=== PATIENT | female | born 1965 | race Caucasian/White ===

== ENCOUNTER 2017-03-17 17:46 | Emergency (ER) | payer SELFPAY | END 2017-03-17 18:15 | disposition left against medical advice (07) | LOC: ED 17:46 | DX: M54.9 Dorsalgia, unspecified (principal); Z53.21 Procedure and treatment not carried out due to patient leaving prior to being seen by health care provider ==

== ENCOUNTER 2017-03-18 06:43 | Emergency (ER) | payer MEDICAID ==
[2017-03-18 07:33] LABS: Basophils % (Auto) 0.9 % (0.0-1.8); Eosinophils % (Auto) 2.3 % (0.0-4.3); Hematocrit 36.4 % (30.3-42.9); Mean Corpuscular HGB Conc 33 % (30-34); Mean Corpuscular Hemoglobin 30 pg (28-32); Mean Corpuscular Volume 90 fl (79-97); Platelet Count 206 K/mm3 (140-440); Red Blood Count 4.04 M/mm3 (3.65-5.03); Red Cell Distribution Width 13.4 % (13.2-15.2); Reticulocyte % 0.37 % (0.78-2.58)
[2017-03-18] MEDS ORDERED: D5NS 0.2% 1,000 ML IV SCH (08:00)
[2017-03-18] MEDS ORDERED: TORADOL IV ONE (10:04)
[2017-03-18] MEDS ORDERED: BENADRYL IV ONE (10:04)
[2017-03-18] MEDS ORDERED: DILAUDID IV ONE (10:04)
[2017-03-18] MEDS ORDERED: ZOFRAN IV ONE (10:04)
--- NOTE | 2017-03-18 11:30 | Emergency Department Report ---
ED General Adult HPI - General Chief complaint: Sickle Cell Crisis Stated complaint: BILATERAL LEG/BACK PAIN Time Seen by Provider: 03/18/17 09:52 Source: patient Mode of arrival: Ambulatory Limitations: No Limitations - History of Present Illness Initial comments: 51-year-old female the past medical history of sickle cell as as presents to the hospital complaining of lower back in the bilateral thigh pain for 4 days. Pain is aching, intermittent, rated moderate to severe intensity. No aggravating or alleviating factors. Back pain worse with palpation and movement. No alleviating factors. Pain is similar to sickle cell crisis in the past. No reports of urinary incontinence, frequency, fever, weakness, numbness, or abdominal pain. Patient moved here from [place] 2 months ago and does not have a local manager cargo. She does not have a port. She denies splenectomy or cholecystectomy. Severity scale (0 -10): 10 - Related Data Previous Rx's Medication Instructions Recorded Last Taken Type Ibuprofen [Motrin] 600 mg PO Q8H PRN #30 tablet 03/18/17 Unknown Rx Nitrofurantoin [place]/M-Cryst 100 mg PO Q12HR #14 capsule 03/18/17 Unknown Rx [Macrobid CAP] Ondansetron [Zofran Odt] 4 mg PO Q8HR PRN #20 tab.rapdis 03/18/17 Unknown Rx traMADol [Ultram 50 MG tab] 50 mg PO Q6HR PRN #20 tablet 03/18/17 Unknown Rx Allergies Allergy/AdvReac Type Severity Reaction Status Date / Time No Known Allergies Allergy Verified 03/18/17 07:35 ED Review of Systems ROS: Stated complaint: BILATERAL LEG/BACK PAIN Other details as noted in HPI Comment: All other systems reviewed and negative Other: Constitutional: No fevers chills Eyes: No eye pain visual changes ENT: No ear pain or throat pain Neck: Denies pain Respiratory: Denies cough wheezing shortness of breath Cardiovascular: Denies chest pain, palpitations, syncope GI: Denies abdominal pain, nausea, vomiting, diarrhea : Denies dysuria Musculoskeletal: As per HPI Skin: Denies rash, lesions, erythema Neurologic: Denies headache, numbness, weakness Psychiatric: Denies suicidal ideation, hallucinations ED Past Medical Hx - Past Medical History Previous Medical History?: Yes Hx Sickle Cell Disease: Yes - Surgical History Past Surgical History?: No - Social History Smoking Status: Never Smoker - Medications Home Medications: Home Medications Medication Instructions Recorded Confirmed Last Taken Type Ibuprofen [Motrin] 600 mg PO Q8H PRN #30 tablet 03/18/17 Unknown Rx Nitrofurantoin [place]/M-Cryst 100 mg PO Q12HR #14 capsule 03/18/17 Unknown Rx [Macrobid CAP] Ondansetron [Zofran Odt] 4 mg PO Q8HR PRN #20 tab.rapdis 03/18/17 Unknown Rx traMADol [Ultram 50 MG tab] 50 mg PO Q6HR PRN #20 tablet 03/18/17 Unknown Rx ED Physical Exam - General Limitations: No Limitations - Other Other exam information: General: No limitations, patient is alert in no acute distress Head exam: Atraumatic, normocephalic Eyes exam: Normal appearance, pupils equal reactive to light, extraocular movements intact ENT: Moist mucous membrane, normal oropharynx Neck exam: Normal inspection, full range of motion, no meningismus nontender Respiratory exam: Clear to auscultation bilateral, no wheezes, rales, crackles Cardiovascular: Normal rate and rhythm, normal heart sounds Abdomen: Soft, nondistended, and nontender, with normal bowel sounds, no rebound, or guarding Extremity: Full range of motion normal inspection no deformity Back: Normal Inspection, full range of motion, no tenderness Neurologic: Alert, oriented x3, cranial nerves intact, no motor or sensory deficit Psychiatric: normal affect, normal mood Skin: Warm, dry, intact ED Course Vital Signs 03/18/17 06:56 Temperature 98.7 F Pulse Rate 86 Respiratory 18 Rate Blood Pressure 137/99 O2 Sat by Pulse 100 Oximetry - Reevaluation(s) Reevaluation #1: 03/18/17 12:35 Patient's pain improved after Toradol, Dilaudid, Zofran, and Benadryl. Macrobid provided for UTI ED Medical Decision Making - Lab Data Result diagrams: 03/18/17 07:15 Lab Results 03/18/17 03/18/17 03/18/17 Range/Units 07:15 07:15 12:07 WBC 7.0 (4.5-11.0) K/mm3 RBC 4.04 (3.65-5.03) M/mm3 Hgb 12.0 (10.1-14.3) gm/dl Hct 36.4 (30.3-42.9) % MCV 90 (79-97) fl MCH 30 (28-32) pg MCHC 33 (30-34) % RDW 13.4 (13.2-15.2) % Plt Count 206 (140-440) K/mm3 Lymph % (Auto) 34.2 (13.4-35.0) % [place] % (Auto) 3.3 (0.0-7.3) % Eos % (Auto) 2.3 (0.0-4.3) % Baso % (Auto) 0.9 (0.0-1.8) % Lymph # 2.4 (1.2-5.4) K/mm3 [place] # 0.2 (0.0-0.8) K/mm3 Eos # 0.2 (0.0-0.4) K/mm3 Baso # 0.1 (0.0-0.1) K/mm3 Seg Neutrophils % 59.3 (40.0-70.0) % Seg Neutrophils # 4.2 (1.8-7.7) K/mm3 Percent Retic 0.37 L (0.78-2.58) % Sickle Cell Screen Positive (Negative) Urine Color Yellow (Yellow) Urine Turbidity Slightly-cloudy (Clear) Urine pH 5.0 (5.0-7.0) Ur Specific [place] 1.013 (1.003-1.030) Urine Protein <15 mg/dl (Negative) mg/dL Urine Glucose (UA) Neg (Negative) mg/dL Urine Ketones Neg (Negative) mg/dL Urine Blood Mod (Negative) Urine Nitrite Pos (Negative) Urine Bilirubin Neg (Negative) Urine Urobilinogen < 2.0 (<2.0) mg/dL Ur Leukocyte Esterase Sm (Negative) Urine WBC (Auto) 24.0 H (0.0-6.0) /HPF Urine RBC (Auto) 2.0 (0.0-6.0) /HPF U Epithel Cells (Auto) 5.0 (0-13.0) /HPF Urine Bacteria (Auto) 2+ (Negative) /HPF Urine Mucus Few /HPF - Medical Decision Making Patient sickle cell screen was positive. labs do not support acute crisis. Suspect that pain is secondary to UTI. Pain improved in the ED with treatment. Macrobid initiated prior to discharge and will be continued. - Differential Diagnosis UTI, sickle cell crisis, muscle strain, radiculopathy Critical Care Time: No Critical care attestation.: If time is entered above; I have spent that time in minutes in the direct care of this critically ill patient, excluding procedure time. ED Disposition Clinical Impression: Sickle cell disease, UTI (urinary tract infection) Disposition: TO HOME OR SELFCARE Is pt being admited?: No Does the pt Need Aspirin: No Condition: Stable Instructions: Sickle Cell Crisis (ED), Urinary Tract Infection in Women (ED) Additional Instructions: Take the medications as prescribed. Follow-up with the manager cargo and primary care doctor/clinic provided. Return if symptoms worsen Prescriptions: Ibuprofen [Motrin] 600 mg PO Q8H PRN #30 tablet PRN Reason: Pain Nitrofurantoin [place]/M-Cryst [Macrobid CAP] 100 mg PO Q12HR #14 capsule Ondansetron [Zofran Odt] 4 mg PO Q8HR PRN #20 tab.rapdis PRN Reason: Nausea And Vomiting traMADol [Ultram 50 MG tab] 50 mg PO Q6HR PRN #20 tablet PRN Reason: Pain Referrals: Yamilet HURLEY [Other] - 3-5 Days ANT BURRIS DO [Staff Physician] - 3-5 Days ([facility] [employer]) Time of Disposition: 12:42
[2017-03-18 12:28] LABS: Bacteria,Urine 2+ /HPF (Negative); Bilirubin,Urine NEG (Negative); Blood,Urine MOD (Negative); Ketones,Urine NEG (Negative); Leukocyte Esterase,Urine SM (Negative); Mucus,Urine FEW /HPF; Nitrite,Urine POS (Negative); Protein,Urine <15 mg/dL mg/dL (Negative); Urobilinogen,Urine < 2.0 mg/dL (<2.0)
[2017-03-18] MEDS ORDERED: MACROBID PO ONE (12:33)
[2017-03-18 13:34] VITALS: BP 147/88
== END 2017-03-18 13:39 | disposition home or self-care (01) ==
LOC: ED 06:43
DX: D57.1 Sickle-cell disease without crisis (principal); N39.0 Urinary tract infection, site not specified
CPT/HCPCS: 36415; 81001; 85025; 85045; 85660; 96374; 96375; 99283; J1170; J1200; J1885; J2405

== ENCOUNTER 2017-05-02 17:33 | Emergency (ER) | payer SELFPAY ==
[2017-05-02 21:08] LABS: Basophils % (Auto) 1.1 % (0.0-1.8); Eosinophils % (Auto) 2.9 % (0.0-4.3); Hematocrit 32.5 % (30.3-42.9); Hemoglobin 11.2 gm/dl (10.1-14.3); Mean Corpuscular HGB Conc 34 % (30-34); Mean Corpuscular Hemoglobin 30 pg (28-32); Mean Corpuscular Volume 88 fl (79-97); Platelet Count 239 K/mm3 (140-440); Red Blood Count 3.69 M/mm3 (3.65-5.03); Red Cell Distribution Width 13.9 % (13.2-15.2)
[2017-05-02 21:23] LABS: Alanine Aminotransferase 24 units/L (7-56); Albumin/Globulin Ratio 1.1 %; Alkaline Phosphatase 82 units/L (35-129); Anion Gap 14 mmol/L; Bilirubin,Total < 0.20 mg/dL (0.1-1.2); Blood Urea Nitrogen 6 mg/dL (7-17); Calcium 8.9 mg/dL (8.4-10.2); Carbon Dioxide 28 mmol/L (22-30); Chloride 102.3 mmol/L (98-107); Glucose 94 mg/dL (65-100); Potassium 4.3 mmol/L (3.6-5.0); Sodium 140 mmol/L (137-145); Total Protein 7.6 g/dL (6.3-8.2)
[2017-05-02 21:51] LABS: Bilirubin,Urine NEG (Negative); Blood,Urine SM (Negative); Ketones,Urine NEG (Negative); Leukocyte Esterase,Urine NEG (Negative); Nitrite,Urine NEG (Negative); Protein,Urine <15 mg/dL mg/dL (Negative); Urobilinogen,Urine < 2.0 mg/dL (<2.0)
[2017-05-03 00:13] VITALS: BP 156/98
== END 2017-05-03 03:30 | disposition left against medical advice (07) ==
LOC: ED 17:33
DX: M54.5 Low back pain (principal); Z53.21 Procedure and treatment not carried out due to patient leaving prior to being seen by health care provider
CPT/HCPCS: 36415; 80053; 81001; 85025; 85045; 87086; 93005; 93010

== ENCOUNTER 2017-05-08 12:28 | Emergency (ER) | payer MEDICAID ==
[2017-05-08 13:21] LABS: Eosinophils % (Auto) 0.5 % (0.0-4.3); Hematocrit 35.4 % (30.3-42.9); Hemoglobin 11.9 gm/dl (10.1-14.3); Mean Corpuscular HGB Conc 34 % (30-34); Mean Corpuscular Hemoglobin 30 pg (28-32); Mean Corpuscular Volume 88 fl (79-97); Platelet Count 292 K/mm3 (140-440); Red Blood Count 4.03 M/mm3 (3.65-5.03); Red Cell Distribution Width 14.3 % (13.2-15.2); Reticulocyte % 0.88 % (0.78-2.58); White Blood Count 7.1 K/mm3 (4.5-11.0)
[2017-05-08 13:34] LABS: Alanine Aminotransferase 13 units/L (7-56); Albumin 4.2 g/dL (3.9-5); Albumin/Globulin Ratio 1.1 %; Alkaline Phosphatase 69 units/L (35-129); Anion Gap 17 mmol/L; BUN/Creatinine Ratio 13.33; Blood Urea Nitrogen 8 mg/dL (7-17); Calcium 9.7 mg/dL (8.4-10.2); Carbon Dioxide 25 mmol/L (22-30); Chloride 104.5 mmol/L (98-107); Glucose 100 mg/dL (65-100); Lipase 29 units/L (13-60); Potassium 3.7 mmol/L (3.6-5.0); Sodium 143 mmol/L (137-145); Total Protein 7.9 g/dL (6.3-8.2)
[2017-05-08 15:58] LABS: Bacteria,Urine 4+ /HPF (Negative); Bilirubin,Urine NEG (Negative); Blood,Urine SM (Negative); Ketones,Urine TR mg/dL (Negative); Leukocyte Esterase,Urine TR (Negative); Mucus,Urine 3+ /HPF; Nitrite,Urine POS (Negative); Protein,Urine <15 mg/dL mg/dL (Negative); Urobilinogen,Urine < 2.0 mg/dL (<2.0)
[2017-05-08] MEDS ORDERED: ZOFRAN IV ONE (19:13)
[2017-05-08] MEDS ORDERED: MORPHINE IV ONE (19:13)
[2017-05-08] MEDS ORDERED: NACL 0.9% 1000 ML 1,000 ML IV ONE (19:13)
[2017-05-08] MEDS ORDERED: MORPHINE ONE (19:18)
[2017-05-08] MEDS ORDERED: KEFLEX PO ONE (20:56)
[2017-05-08] MEDS ORDERED: DILAUDID IV ONE (20:56)
--- NOTE | 2017-05-08 21:01 | Emergency Department Report ---
HPI - General Chief Complaint: Abdominal Pain Time Seen by Provider: 05/08/17 19:36 - HPI HPI: The patient is a 51-year-old female who presents for evaluation of abdominal pain. The patient reports abdominal pain for the past 2 days, left lower quadrant and periumbilical in location, 10/10 in severity, burning and cramping in quality, radiating to the back, constant for the past one day. The patient denies fever, chills, night sweats, diarrhea, blood in the stool, dark tarry stool, she also reports mild dysuria. Hematuria, flank pain, genital discharge , inability to pass flatus. ED Past Medical Hx - Past Medical History Hx Sickle Cell Disease: Yes - Surgical History Additional Surgical History: tubal ligation - Social History Smoking Status: Never Smoker Substance Use Type: None - Medications Home Medications: Home Medications Medication Instructions Recorded Confirmed Last Taken Type Ibuprofen [Motrin] 600 mg PO Q8H PRN #30 tablet 03/18/17 Unknown Rx Nitrofurantoin [place]/M-Cryst 100 mg PO Q12HR #14 capsule 03/18/17 Unknown Rx [Macrobid CAP] Ondansetron [Zofran Odt] 4 mg PO Q8HR PRN #20 tab.rapdis 03/18/17 Unknown Rx Cephalexin [Keflex] 500 mg PO TID #15 capsule 05/08/17 Unknown Rx traMADol [Ultram 50 MG tab] 50 mg PO Q6HR PRN #20 tablet 05/08/17 Unknown Rx ED Review of Systems ROS: Stated complaint: ABDOMINAL AND LOWER BACK PAIN Other details as noted in HPI Constitutional: denies: fever ENT: denies: throat or neck pain Respiratory: denies: cough, shortness of breath Cardiovascular: denies: chest pain Endocrine: denies unexplained weight loss or gain Gastrointestinal: reports abdominal pain, nausea Genitourinary: reports dysuria Musculoskeletal: denies: leg swelling Skin: denies: rash Neurological: denies: headache Hematological/Lymphatic: denies: easy bleeding or easy bruising Psych: denies sadness or hopelessness Physical Exam - Physical Exam Vital Signs: Vital Signs 05/08/17 05/08/17 05/08/17 12:46 16:47 17:13 Temperature 99 F Pulse Rate 110 H 91 H Respiratory 16 22 20 Rate Blood Pressure 156/104 Blood Pressure 138/91 [Left] O2 Sat by Pulse 99 Oximetry 05/08/17 19:24 Temperature Pulse Rate Respiratory 18 Rate Blood Pressure Blood Pressure [Left] O2 Sat by Pulse Oximetry Physical Exam: General: well-nourished, well-developed, no acute distress Head: Normocephalic, atraumatic Eyes: normal sclera ENT: Mucous membranes are pale and dry Neck: No neck stiffness, no cervical adenopathy Respiratory: Breath sounds equal bilaterally, no wheezing, rales, or rhonchi Cardio: S1 and S2 present, no murmurs, rubs, gallops, capillary refill is delayed Abdomen: Normoactive bowel sounds, soft abdomen, suprapubic and periumbilical tenderness to palpation present, no rigidity, no guarding or rebound tenderness Chest WALL/Back: No tenderness to palpation of the chest wall, no CVA tenderness with percussion Musc: No pitting edema Skin: No rash Neuro: no facial drooping, normal speech Psych: Normal affect ED Course Vital Signs 05/08/17 05/08/17 05/08/17 12:46 16:47 17:13 Temperature 99 F Pulse Rate 110 H 91 H Respiratory 16 22 20 Rate Blood Pressure 156/104 Blood Pressure 138/91 [Left] O2 Sat by Pulse 99 Oximetry 05/08/17 19:24 Temperature Pulse Rate Respiratory 18 Rate Blood Pressure Blood Pressure [Left] O2 Sat by Pulse Oximetry ED Medical Decision Making - Lab Data Result diagrams: 05/08/17 12:56 05/08/17 12:56 - Medical Decision Making The patient was seen and examined by myself. The patient is placed on a industrial machine system technician and continuous pulse ox. On initial evaluation, the patient was found to be in no distress. Evaluation orders are placed. IV access is established and the patient is given 1 L normal saline fluid bolus and Zofran for nausea, and IV analgesic for pain. Lab results revealed elevated urinalysis WBC with positive leukocyte esterase, concerning for UTI, and otherwise labs were non-concerning including serum WBC, hemoglobin, hematocrit, electrolytes, renal function, LFTs, lipase. The patient is given Keflex for treatment of UTI. The patient was reevaluated and reported that their symptoms were markedly improved. The patient is stable for discharge with outpatient follow- up. The patient is given follow-up and return instructions. The patient expressed understanding and agreed with the plan. The patient is discharged in stable condition. Critical care attestation.: If time is entered above; I have spent that time in minutes in the direct care of this critically ill patient, excluding procedure time. ED Disposition Clinical Impression: Abdominal pain, acute, bilateral lower quadrant, Dehydration, Acute lower UTI ( urinary tract infection) Disposition: TO HOME OR SELFCARE Is pt being admited?: No Does the pt Need Aspirin: No Condition: Stable Instructions: Urinary Tract Infection in Women (ED), Sickle Cell Crisis (ED), Acute Low Back Pain (ED), Abdominal Pain (ED) Prescriptions: Cephalexin [Keflex] 500 mg PO TID #15 capsule traMADol [Ultram 50 MG tab] 50 mg PO Q6HR PRN #20 tablet PRN Reason: Pain Referrals: PRIMARY CARE,MD [Primary Care Provider] - 3-5 Days Time of Disposition: 20:59
[2017-05-08 23:25] VITALS: BP 137/71
== END 2017-05-08 21:50 | disposition home or self-care (01) ==
LOC: ED 12:28
DX: N39.0 Urinary tract infection, site not specified (principal); E86.0 Dehydration
CPT/HCPCS: 36415; 80053; 81001; 83690; 85025; 85045; 93005; 93010; 96361; 96374; 96375; 99284; J1170; J2270; J2405; J7030

== ENCOUNTER 2017-05-20 07:56 | Emergency (ER) | payer MEDICAID ==
[2017-05-20 08:06] VITALS: BP 153/103
[2017-05-20 08:37] LABS: Basophils % (Auto) 1.1 % (0.0-1.8); Eosinophils % (Auto) 3.5 % (0.0-4.3); Hematocrit 36.1 % (30.3-42.9); Hemoglobin 12.2 gm/dl (10.1-14.3); Mean Corpuscular HGB Conc 34 % (30-34); Mean Corpuscular Hemoglobin 30 pg (28-32); Mean Corpuscular Volume 90 fl (79-97); Platelet Count 285 K/mm3 (140-440); Red Blood Count 4.01 M/mm3 (3.65-5.03); Red Cell Distribution Width 15.1 % (13.2-15.2); White Blood Count 5.1 K/mm3 (4.5-11.0)
[2017-05-20 08:52] LABS: Mucus,Urine FEW /HPF
[2017-05-20 09:06] LABS: Alanine Aminotransferase 8 units/L (7-56); Albumin 4.2 g/dL (3.9-5); Albumin/Globulin Ratio 1.2 %; Alkaline Phosphatase 66 units/L (35-129); Anion Gap 19 mmol/L; BUN/Creatinine Ratio 14; Blood Urea Nitrogen 7 mg/dL (7-17); Calcium 9.6 mg/dL (8.4-10.2); Carbon Dioxide 24 mmol/L (22-30); Chloride 107.5 mmol/L (98-107); Glucose 94 mg/dL (65-100); Lipase 55 units/L (13-60); Potassium 4.2 mmol/L (3.6-5.0); Sodium 146 mmol/L (137-145); Total Protein 7.7 g/dL (6.3-8.2)
[2017-05-20 09:09] LABS: Bilirubin,Urine NEG (Negative); Blood,Urine SM (Negative); Ketones,Urine NEG (Negative); Leukocyte Esterase,Urine NEG (Negative); Nitrite,Urine NEG (Negative); Protein,Urine <15 mg/dL mg/dL (Negative); Urobilinogen,Urine < 2.0 mg/dL (<2.0)
--- NOTE | 2017-05-20 14:53 | Emergency Department Report ---
ED General Adult HPI - General Chief complaint: Abdominal Pain Stated complaint: ABDOMINAL/BACK/LEG PAINS Time Seen by Provider: 05/20/17 14:50 Source: patient, RN notes reviewed, old records reviewed Mode of arrival: Ambulatory Limitations: No Limitations - History of Present Illness Initial comments: This is a 51-year-old female. She is previously unknown to this provider. She reports a past medical history of sickle cell disease, surgical abdominal history includes /tubal ligation. Patient presents to the ER complaining of epigastric abdominal pain, right flank and right CVA back pain, and bilateral hamstring pain and bilateral knee pain. This pain has been going on for the past 2-3 days. The abdominal pain is as aforementioned, does not radiate anywhere, increases with palpation and decreases with rest. Positive nausea, believe she's had a few episodes of nonbloody, nonbilious emesis. She denies irritative and obstructive urinary symptoms. Patient denies bladder or bowel retention/incontinence, and denies saddle anesthesia. Patient indicates that her leg pains in the bilateral hamstrings and bilateral knees, there is no Swelling. Patient endorses that she recently got here from [place] a little bit over a month ago, reports driving up from [place], reports frequent stops during the drive up. There is no chest pain, shortness of breath. Not currently on control tablets, indicates that she is not . -: Gradual Location: abdomen, left, right, lower extremity Radiation: non-radiation Quality: aching Consistency: intermittent Improves with: rest Worsens with: movement Associated Symptoms: loss of appetite, malaise, nausea/vomiting, weakness. denies: confusion, chest pain, cough - Related Data Previous Rx's Medication Instructions Recorded Last Taken Type Ibuprofen [Motrin] 600 mg PO Q8H PRN #30 tablet 03/18/17 Unknown Rx Nitrofurantoin [place]/M-Cryst 100 mg PO Q12HR #14 capsule 03/18/17 Unknown Rx [Macrobid CAP] Ondansetron [Zofran Odt] 4 mg PO Q8HR PRN #20 tab.rapdis 03/18/17 Unknown Rx Cephalexin [Keflex] 500 mg PO TID #15 capsule 05/08/17 Unknown Rx traMADol [Ultram 50 MG tab] 50 mg PO Q6HR PRN #20 tablet 05/08/17 Unknown Rx Dicyclomine [Bentyl] 10 mg PO QID PRN #20 capsule 05/20/17 Unknown Rx Famotidine [Pepcid] 20 mg PO QDAY #30 tablet 05/20/17 Unknown Rx Ondansetron [Zofran Odt] 4 mg PO QID PRN #20 tab.rapdis 05/20/17 Unknown Rx Allergies Allergy/AdvReac Type Severity Reaction Status Date / Time No Known Allergies Allergy Verified 03/18/17 07:35 ED Review of Systems ROS: Stated complaint: ABDOMINAL/BACK/LEG PAINS Other details as noted in HPI Constitutional: denies: fever Eyes: denies: eye discharge ENT: denies: epistaxis Respiratory: denies: cough Cardiovascular: denies: chest pain Gastrointestinal: abdominal pain, nausea, vomiting Genitourinary: denies: dysuria Musculoskeletal: back pain, arthralgia, myalgia Skin: denies: lesions Neurological: denies: weakness Psychiatric: anxiety ED Past Medical Hx - Past Medical History Previous Medical History?: Yes Hx Sickle Cell Disease: Yes - Surgical History Additional Surgical History: tubal ligation - Social History Smoking Status: Never Smoker Substance Use Type: None - Medications Home Medications: Home Medications Medication Instructions Recorded Confirmed Last Taken Type Ibuprofen [Motrin] 600 mg PO Q8H PRN #30 tablet 03/18/17 Unknown Rx Nitrofurantoin [place]/M-Cryst 100 mg PO Q12HR #14 capsule 03/18/17 Unknown Rx [Macrobid CAP] Ondansetron [Zofran Odt] 4 mg PO Q8HR PRN #20 tab.rapdis 03/18/17 Unknown Rx Cephalexin [Keflex] 500 mg PO TID #15 capsule 05/08/17 Unknown Rx traMADol [Ultram 50 MG tab] 50 mg PO Q6HR PRN #20 tablet 05/08/17 Unknown Rx Dicyclomine [Bentyl] 10 mg PO QID PRN #20 capsule 05/20/17 Unknown Rx Famotidine [Pepcid] 20 mg PO QDAY #30 tablet 05/20/17 Unknown Rx Ondansetron [Zofran Odt] 4 mg PO QID PRN #20 tab.rapdis 05/20/17 Unknown Rx ED Physical Exam - General Limitations: No Limitations General appearance: alert, in no apparent distress - Head Head exam: Present: atraumatic, normocephalic - Eye Eye exam: Present: normal appearance, PERRL, EOMI, other (visual acuity intact to finger counting, color perception, reading at a close distance). Absent: nystagmus - ENT ENT exam: Present: normal exam, normal orophraynx, mucous membranes moist, normal external ear exam - Neck Neck exam: Present: normal inspection, full ROM. Absent: tenderness, meningismus - Respiratory Respiratory exam: Present: normal lung sounds bilaterally. Absent: respiratory distress, wheezes, rales, rhonchi, stridor, chest wall tenderness, accessory muscle use, decreased breath sounds, prolonged expiratory - Cardiovascular Cardiovascular Exam: Present: regular rate, normal rhythm, normal heart sounds. Absent: bradycardia, tachycardia, irregular rhythm, systolic murmur, diastolic murmur, rubs, gallop - GI/Abdominal GI/Abdominal exam: Present: soft, tenderness, normal bowel sounds, other (there is epigastric tenderness. There is no right upper quadrant tenderness. There is right flank tenderness. There is right CVA tenderness.). Absent: distended , guarding, rebound, rigid, pulsatile mass - Extremities Exam Extremities exam: Present: normal inspection, full ROM, normal capillary refill , other (there is no palpable cord. There is negative Homans sign. The compartments are soft. 2+ pulses noted in the bilateral upper and lower extremities.). Absent: pedal edema, joint swelling, calf tenderness - Back Exam Back exam: Present: normal inspection, full ROM, CVA tenderness (R). Absent: tenderness, paraspinal tenderness - Neurological Exam Neurological exam: Present: alert, oriented X3, normal gait, other (Extraocular movements intact. Tongue midline. No facial droop. Facial sensation intact to light touch in the V1, V2, V3 distribution bilaterally. 5 and 5 strength in 4 extremities.. Sensation is intact to light touch in 4 extremities.). Absent : motor sensory deficit - Psychiatric Psychiatric exam: Present: normal affect, normal mood - Skin Skin exam: Present: warm, dry, intact, normal color. Absent: rash ED Course Vital Signs 05/20/17 08:02 Temperature 98.2 F Pulse Rate 86 Respiratory 16 Rate Blood Pressure 153/103 O2 Sat by Pulse 100 Oximetry - Reevaluation(s) Reevaluation #1: 05/20/17 15:31 Differential diagnosis: GERD, gastritis, pancreatitis, pneumonia, must get skeletal back pain, musculoskeletal leg pain, appendicitis, renal colic Assessment and plan: 51-year-old female with epigastric abdominal pain, nausea, vomiting, right flank abdominal pain, nonspecific posterior leg pain. Low risk by well's criteria, perc negative. Her lower extremity physical exam does not support the diagnosis of fracture, dislocation, compartment syndrome, or DVT. She is moving 4 extremities, and the compartments are soft. Her physical exam is not consistent with epidural compression syndrome. Laboratory studies are unremarkable, EKG is unremarkable , I think acute coronary syndrome is very unlikely. Patient will be treated symptomatically. She has presented to this department multiple times for lower extremity discomfort, and for abdominal pain. CT scan of the abdomen and pelvis is pending. She'll be given nonnarcotic therapy for her symptoms. Reevaluation #2: 05/20/17 17:57 Old records reviewed from [facility] system. Apparently, patient has had multiple visits to the emergency department for abdominal pain. Patient had a visit in Dec, 2016 for mid epigastric pain, lower back pain. It is documented that the patient has a past medical history of sickle cell disease and ulcers. At that time, patient had a negative right upper quadrant ultrasound. EKG was performed and appears to be unchanged. Patient also had CT scan of the abdomen and pelvis performed in January 2016, was unremarkable. CT scan today suggests gastritis. Nonspecific adenopathy is also suggested. No surgical condition is identified at this time. Unfortunately, the patient eloped prior to completion of her evaluation. However, the patient would've been discharged anyhow given a CAT scan findings. This provider will order a call back so patient can be informed of her incidental CAT scan findings, and the patient will be specifically informed that she should follow up closely to exclude outpatient cancer/tumor/ malignancy. I will also put together discharge paperwork and nonnarcotic pain medication the patient elects to follow-up . ED Medical Decision Making - Lab Data Result diagrams: 05/20/17 08:11 05/20/17 08:11 - EKG Data -: EKG Interpreted by Me EKG shows normal: sinus rhythm, axis, intervals, QRS complexes, ST-T waves - EKG Data When compared to previous EKG there are: previous EKG unavailable 05/20/17 15:33 Sinus, 79 bpm, normal axis, short ID interval, not morphologically consistent with STEMI. - Radiology Data Radiology results: pending, report reviewed CT scan demonstrates no acute findings. Multiple incidental findings noted. Critical care attestation.: If time is entered above; I have spent that time in minutes in the direct care of this critically ill patient, excluding procedure time. ED Disposition Clinical Impression: Abdominal pain Disposition: Z-07 ELOPED Is pt being admited?: No Does the pt Need Aspirin: No Condition: Undetermined Instructions: Abdominal Pain (ED) Additional Instructions: Take the pain medication and nausea medication as directed. CT scan demonstrated nonspecific lymph nodes in the left upper quadrant, this should be followed up by primary care doctor. Follow up with the primary care doctor within the next month. Not following up in a timely fashion may result in an undiagnosed tumor/cancer/malignancy. Physical exam and history/physical, CT scan suggested GERD/gastritis/stomach acid. Avoid consumption of having spicy foods. Avoid consumption of aspirin, ibuprofen, Aleve, Motrin. Take the prescribed medications as directed, and follow-up with the primary care doctor or vp revenue cycle within the next month. Return to the ER right away with new pain, worsening pain, migration of pain, fevers, chills, intractable nausea or vomiting, confusion, inability to tolerate liquid feeds. Referrals: PRIMARY CARE, [Primary Care Provider] - 3-5 Days MARKUS MANRIQUEZ MD [Referring] - 3-5 Days JANES PHAN MD [Referring] - 3-5 Days ANIA JOSHI MD [Staff Physician] - 3-5 Days
[2017-05-20] MEDS ORDERED: CARAFATE PO ONE (15:05)
[2017-05-20] MEDS ORDERED: PEPCID IV ONE (15:05)
[2017-05-20] MEDS ORDERED: BENTYL PO ONE (15:05)
[2017-05-20] MEDS ORDERED: ZOFRAN IV ONE (15:05)
[2017-05-20] MEDS ORDERED: ALUM-MAG HYDROX-SIMETH 200-200-20MG/5ML PO ONE (15:05)
[2017-05-20] MEDS ORDERED: NACL 0.9% 1000 ML 1,000 ML IV ONE (15:06)
[2017-05-20] MEDS ORDERED: NACL ONE ×2 (16:09→16:39)
[2017-05-20] MEDS ORDERED: TYLENOL PO ONE (16:13)
--- NOTE | 2017-05-20 17:55 | Cat Scan Report ---
FINAL REPORT PROCEDURE: CT ABDOMEN PELVIS W CON TECHNIQUE: Computerized axial tomography of the abdomen and pelvis was performed after the IV injection of iodinated nonionic contrast. 292 HISTORY: abd pain COMPARISON: No prior studies are available for comparison. FINDINGS: Visualized lower thorax: No significant abnormality. Liver: 1 x 1.5 centimeter low attenuated area in the left lobe of liver Spleen: Normal size and attenuation. Gallbladder and biliary system: Normal. Pancreas: Normal. Adrenals: Normal. Kidneys: Normal. GI tract: No oral contrast. Normal caliber appendix. Suspect some thickening of the rugal folds of the stomach 1.3 centimeters and thickening of the antrum 1 centimeter exaggerated by lack of distension and lack of oral contrast.. Gastritis not excludable. Other infiltrative pathology not excludable. Followup and further workup is advised. Consider endoscopy or followup oral contrast examination such as CT study with oral contrast or upper GI examination small hiatal hernia. Lymph nodes and mesentery: Lobular low attenuated mass lesion suspected left upper quadrant between the stomach in the pancreas measures 2.2 x 1.5 centimeters. This may reflect lymphadenopathy. No significant enhancement features seen. Periportal katie hepatis adenopathy in the 1.5 x 1.0 centimeter range Vasculature: Normal. Bladder: Normal. Reproductive organs: Heterogeneous uterus right paracentral pelvis with mild vascularity in the adnexa Peritoneum: No free fluid. Musculoskeletal structures: Scattered disc bulging L3-4 L4-5 L5-S1. Other: Left inguinal adenopathy measuring 1.7 x 1.5 centimeters IMPRESSION: Suspect gastric wall thickening. Rule-out gastritis or other infiltrative gastric pathology Lobular mass lesion left upper quadrant of indeterminate etiology may reflect adenopathy possibly reactive, however metastatic adenopathy is the diagnosis of exclusion. Scattered adenopathy including pre portal and left inguinal Followup and further workup is advised
== END 2017-05-20 18:15 | disposition left against medical advice (07) ==
LOC: ED 07:56
DX: R10.13 Epigastric pain (principal); M25.561 Pain in right knee; M25.562 Pain in left knee
CPT/HCPCS: 36415; 74177; 80053; 81001; 82550; 83690; 85025; 93005; 93010; 96361; 96374; 96375; 99284; J2405; J7030; Q9967

== ENCOUNTER 2017-06-05 02:48 | Emergency (ER) | payer SELFPAY ==
[2017-06-05 03:01] VITALS: BP 141/95
[2017-06-05 03:37] LABS: Amylase 117 units/L (27-131); Anion Gap 15 mmol/L; BUN/Creatinine Ratio 11; Blood Urea Nitrogen 9 mg/dL (7-17); Calcium 9.3 mg/dL (8.4-10.2); Carbon Dioxide 28 mmol/L (22-30); Chloride 105.4 mmol/L (98-107); Glucose 92 mg/dL (65-100); Potassium 4.2 mmol/L (3.6-5.0); Sodium 144 mmol/L (137-145)
[2017-06-05] MEDS ORDERED: D5NS 0.2% 1,000 ML IV SCH (04:00)
[2017-06-05 04:06] LABS: Basophils % (Auto) 1.1 % (0.0-1.8); Eosinophils % (Auto) 2.8 % (0.0-4.3); Hematocrit 36.9 % (30.3-42.9); Hemoglobin 12.4 gm/dl (10.1-14.3); Mean Corpuscular HGB Conc 34 % (30-34); Mean Corpuscular Hemoglobin 30 pg (28-32); Mean Corpuscular Volume 89 fl (79-97); Platelet Count 298 K/mm3 (140-440); Red Blood Count 4.13 M/mm3 (3.65-5.03); Red Cell Distribution Width 14.4 % (13.2-15.2); Reticulocyte % 0.66 % (0.78-2.58); White Blood Count 5.5 K/mm3 (4.5-11.0)
[2017-06-05] MEDS ORDERED: LIDOCAINE VISCOUS 2% PO ONE (08:34)
[2017-06-05] MEDS ORDERED: NORCO 5/325 PO ONE (08:34)
[2017-06-05] MEDS ORDERED: PEPCID PO ONE (08:34)
[2017-06-05] MEDS ORDERED: ALUM-MAG HYDROX-SIMETH 200-200-20MG/5ML PO ONE (08:34)
--- NOTE | 2017-06-05 08:41 | Emergency Department Report ---
ED Abdominal Pain HPI - General Chief Complaint: Abdominal Pain Stated Complaint: ABD PAIN & BACK PAIN Time Seen by Provider: 06/05/17 08:22 Source: patient, old records reviewed Mode of arrival: Ambulatory Limitations: No Limitations - History of Present Illness Initial Comments: 52-year-old female with a past medical history sickle cell SC and tubal ligation presents complaining of abdominal pain for the past 2 days. Pain is in the epigastric area, intermittent, sharp and burning and radiates to the back. Positive nausea without vomiting, melena, hematochezia, diarrhea, or dysuria. Patient had similar pain when she presented here on May 20. Patient received a CT scan abdomen and pelvis with IV contrast but eloped prior to receiving the results. Patient does not have a primary care doctor but just applied for insurance. CT report from 05/20/2017 reviewed. Patient received a CT abdomen and pelvis with IV contrast. Suspected gastric wall thickening, rule out gastritis or infiltrating gastric pathology. Lobular mass lesion left upper quadrant and etiology may reflect adenopathy also be reactive. However, metastatic adenopathy is a diagnosis of exclusion. Scattered adenopathy including pre portal and left inguinal. Follow-up and further workup as advised. - Related Data Previous Rx's Medication Instructions Recorded Last Taken Type Ibuprofen [Motrin] 600 mg PO Q8H PRN #30 tablet 03/18/17 Unknown Rx Nitrofurantoin [place]/M-Cryst 100 mg PO Q12HR #14 capsule 03/18/17 Unknown Rx [Macrobid CAP] Cephalexin [Keflex] 500 mg PO TID #15 capsule 05/08/17 Unknown Rx traMADol [Ultram 50 MG tab] 50 mg PO Q6HR PRN #20 tablet 05/08/17 Unknown Rx Dicyclomine [Bentyl] 10 mg PO QID PRN #20 capsule 05/20/17 Unknown Rx Ondansetron [Zofran Odt] 4 mg PO QID PRN #20 tab.rapdis 05/20/17 Unknown Rx Famotidine [Pepcid] 20 mg PO BID #60 tablet 06/05/17 Unknown Rx HYDROcodone/APAP 5-325 [[place] 1 each PO Q6HR PRN #20 tablet 06/05/17 Unknown Rx 5/325] Ondansetron [Zofran ODT TAB] 4 mg PO Q8HR PRN #20 tab.rapdis 06/05/17 Unknown Rx Allergies Allergy/AdvReac Type Severity Reaction Status Date / Time Penicillins Allergy Rash Verified 06/05/17 02:56 ED Review of Systems ROS: Stated complaint: ABD PAIN & BACK PAIN Other details as noted in HPI Comment: All other systems reviewed and negative Other: Constitutional: No fevers chills Eyes: No eye pain visual changes ENT: No ear pain or throat pain Neck: Denies pain Respiratory: Denies cough wheezing shortness of breath Cardiovascular: Denies chest pain, palpitations, syncope GI: As per HPI : Denies dysuria Musculoskeletal: Denies back pain Skin: Denies rash, lesions, erythema Neurologic: Denies headache, numbness, weakness Psychiatric: Denies suicidal ideation, hallucinations ED Past Medical Hx - Past Medical History Previous Medical History?: Yes Hx Sickle Cell Disease: Yes - Surgical History Past Surgical History?: Yes Additional Surgical History: tubal ligation - Social History Smoking Status: Former Smoker Substance Use Type: None - Medications Home Medications: Home Medications Medication Instructions Recorded Confirmed Last Taken Type Ibuprofen [Motrin] 600 mg PO Q8H PRN #30 tablet 03/18/17 Unknown Rx Nitrofurantoin [place]/M-Cryst 100 mg PO Q12HR #14 capsule 03/18/17 Unknown Rx [Macrobid CAP] Cephalexin [Keflex] 500 mg PO TID #15 capsule 05/08/17 Unknown Rx traMADol [Ultram 50 MG tab] 50 mg PO Q6HR PRN #20 tablet 05/08/17 Unknown Rx Dicyclomine [Bentyl] 10 mg PO QID PRN #20 capsule 05/20/17 Unknown Rx Ondansetron [Zofran Odt] 4 mg PO QID PRN #20 tab.rapdis 05/20/17 Unknown Rx Famotidine [Pepcid] 20 mg PO BID #60 tablet 06/05/17 Unknown Rx HYDROcodone/APAP 5-325 [[place] 1 each PO Q6HR PRN #20 tablet 06/05/17 Unknown Rx 5/325] Ondansetron [Zofran ODT TAB] 4 mg PO Q8HR PRN #20 tab.rapdis 06/05/17 Unknown Rx ED Physical Exam - General Limitations: No Limitations ED Course Vital Signs 06/05/17 06/05/17 06/05/17 02:57 08:29 09:53 Temperature 97.9 F 98.8 F Pulse Rate 96 H 79 Respiratory 18 18 18 Rate Blood Pressure 141/95 O2 Sat by Pulse 99 100 Oximetry - Reevaluation(s) Reevaluation #1: 06/05/17 08:41 Maalox, Pepcid, viscous lidocaine, and John [place] ordered 06/05/17 10:17 Patient refused John Day and wanted IV meds. Instead patient received an IM shot of morphine. Pain improved at this time will be discharged ED Medical Decision Making - Lab Data Result diagrams: 06/05/17 03:05 06/05/17 03:05 Lab Results 06/05/17 06/05/17 06/05/17 Range/Units 03:05 03:05 03:05 WBC 5.5 (4.5-11.0) K/mm3 RBC 4.13 (3.65-5.03) M/mm3 Hgb 12.4 (10.1-14.3) gm/dl Hct 36.9 (30.3-42.9) % MCV 89 (79-97) fl MCH 30 (28-32) pg MCHC 34 (30-34) % RDW 14.4 (13.2-15.2) % Plt Count 298 (140-440) K/mm3 Lymph % (Auto) 54.1 H (13.4-35.0) % [place] % (Auto) 4.0 (0.0-7.3) % Eos % (Auto) 2.8 (0.0-4.3) % Baso % (Auto) 1.1 (0.0-1.8) % Lymph # 3.0 (1.2-5.4) K/mm3 [place] # 0.2 (0.0-0.8) K/mm3 Eos # 0.2 (0.0-0.4) K/mm3 Baso # 0.1 (0.0-0.1) K/mm3 Seg Neutrophils % 38.0 L (40.0-70.0) % Seg Neutrophils # 2.1 (1.8-7.7) K/mm3 Percent Retic 0.66 L (0.78-2.58) % Sodium 144 (137-145) mmol/L Potassium 4.2 (3.6-5.0) mmol/L Chloride 105.4 (98-107) mmol/L Carbon Dioxide 28 (22-30) mmol/L Anion Gap 15 mmol/L BUN 9 (7-17) mg/dL Creatinine 0.8 (0.7-1.2) mg/dL Estimated GFR > 60 ml/min BUN/Creatinine Ratio 11 % Glucose 92 (65-100) mg/dL Calcium 9.3 (8.4-10.2) mg/dL Total Bilirubin < 0.20 (0.1-1.2) mg/dL Direct Bilirubin < 0.2 (0-0.2) mg/dL AST 23 (5-40) units/L ALT 12 (7-56) units/L Alkaline Phosphatase 72 (35-129) units/L Total Protein 7.1 (6.3-8.2) g/dL Albumin 4.2 (3.9-5) g/dL Albumin/Globulin Ratio 1.4 % Amylase 117 (27-131) units/L Lipase 67 H (13-60) units/L Urine Color (Yellow) Urine Turbidity (Clear) Urine pH (5.0-7.0) Ur Specific [place] (1.003-1.030) Urine Protein (Negative) mg/dL Urine Glucose (UA) (Negative) mg/dL Urine Ketones (Negative) mg/dL Urine Blood (Negative) Urine Nitrite (Negative) Urine Bilirubin (Negative) Urine Urobilinogen (<2.0) mg/dL Ur Leukocyte Esterase (Negative) Urine WBC (Auto) (0.0-6.0) /HPF Urine RBC (Auto) (0.0-6.0) /HPF U Epithel Cells (Auto) (0-13.0) /HPF Urine Mucus /HPF 06/05/17 Range/Units 09:13 WBC (4.5-11.0) K/mm3 RBC (3.65-5.03) M/mm3 Hgb (10.1-14.3) gm/dl Hct (30.3-42.9) % MCV (79-97) fl MCH (28-32) pg MCHC (30-34) % RDW (13.2-15.2) % Plt Count (140-440) K/mm3 Lymph % (Auto) (13.4-35.0) % [place] % (Auto) (0.0-7.3) % Eos % (Auto) (0.0-4.3) % Baso % (Auto) (0.0-1.8) % Lymph # (1.2-5.4) K/mm3 [place] # (0.0-0.8) K/mm3 Eos # (0.0-0.4) K/mm3 Baso # (0.0-0.1) K/mm3 Seg Neutrophils % (40.0-70.0) % Seg Neutrophils # (1.8-7.7) K/mm3 Percent Retic (0.78-2.58) % Sodium (137-145) mmol/L Potassium (3.6-5.0) mmol/L Chloride (98-107) mmol/L Carbon Dioxide (22-30) mmol/L Anion Gap mmol/L BUN (7-17) mg/dL Creatinine (0.7-1.2) mg/dL Estimated GFR ml/min BUN/Creatinine Ratio % Glucose (65-100) mg/dL Calcium (8.4-10.2) mg/dL Total Bilirubin (0.1-1.2) mg/dL Direct Bilirubin (0-0.2) mg/dL AST (5-40) units/L ALT (7-56) units/L Alkaline Phosphatase (35-129) units/L Total Protein (6.3-8.2) g/dL Albumin (3.9-5) g/dL Albumin/Globulin Ratio % Amylase (27-131) units/L Lipase (13-60) units/L Urine Color Yellow (Yellow) Urine Turbidity Clear (Clear) Urine pH 6.0 (5.0-7.0) Ur Specific [place] 1.014 (1.003-1.030) Urine Protein <15 mg/dl (Negative) mg/dL Urine Glucose (UA) Neg (Negative) mg/dL Urine Ketones Neg (Negative) mg/dL Urine Blood Sm (Negative) Urine Nitrite Neg (Negative) Urine Bilirubin Neg (Negative) Urine Urobilinogen < 2.0 (<2.0) mg/dL Ur Leukocyte Esterase Neg (Negative) Urine WBC (Auto) < 1.0 (0.0-6.0) /HPF Urine RBC (Auto) 2.0 (0.0-6.0) /HPF U Epithel Cells (Auto) 1.0 (0-13.0) /HPF Urine Mucus Few /HPF - Medical Decision Making Patient has abnormal findings on her CT that needs further outpatient workup and evaluation. Patient will be treated symptomatically for pain and started on an H2 shivani for his gastric wall thickening and probable reflux symptoms. Patient voices understanding about need for follow-up and to rule out possible cancer based on an abnormal CT findings. No signs of acute sickle cell crisis or anemia. - Differential Diagnosis gastritis, pancreatitis,, cholelithiasis/cystitis Critical Care Time: No Critical care attestation.: If time is entered above; I have spent that time in minutes in the direct care of this critically ill patient, excluding procedure time. ED Disposition Clinical Impression: Gastritis, Abdominal mass, LUQ (left upper quadrant), Abdominal lymphadenopathy Disposition: OP ADMIT IP TO THIS HOSP Is pt being admited?: No Does the pt Need Aspirin: No Condition: Stable Instructions: Gastritis (ED), Lymphadenopathy (ED) Additional Instructions: A CAT scan of your abdomen and pelvis that was performed earlier this month shows some significant abnormalities involving your stomach and a possible mass in the left upper portion of your abdominal cavity and scattered increased lymph node size. All of these need to be followed up as an outpatient as soon sure that they do not think cancer. Negative for body a copy of her CAT scan report, primary care doctors as clinic, and GI specialist follow-up. Take the medication as prescribed . Please return if symptoms worsen Prescriptions: Famotidine [Pepcid] 20 mg PO BID #60 tablet HYDROcodone/APAP 5-325 [[place] 5/325] 1 each PO Q6HR PRN #20 tablet PRN Reason: Pain Ondansetron [Zofran ODT TAB] 4 mg PO Q8HR PRN #20 tab.rapdis PRN Reason: Nausea And Vomiting Referrals: PRIMARY MD CRISTINA [Primary Care Provider] - 3-5 Days BERE FERGUSON MD [Staff Physician] - 3-5 Days [facility] [Provider Group] - 3-5 Days [facility] [Provider Group] - 3-5 Days Time of Disposition: 10:16
[2017-06-05] MEDS ORDERED: MORPHINE IM ONE (08:58)
[2017-06-05 09:34] LABS: Alanine Aminotransferase 12 units/L (7-56); Albumin 4.2 g/dL (3.9-5); Albumin/Globulin Ratio 1.4 %; Alkaline Phosphatase 72 units/L (35-129); Bilirubin,Total < 0.20 mg/dL (0.1-1.2); Lipase 67 units/L (13-60); Total Protein 7.1 g/dL (6.3-8.2)
[2017-06-05 09:37] LABS: Bilirubin,Urine NEG (Negative); Blood,Urine SM (Negative); Ketones,Urine NEG (Negative); Leukocyte Esterase,Urine NEG (Negative); Mucus,Urine FEW /HPF; Nitrite,Urine NEG (Negative); Protein,Urine <15 mg/dL mg/dL (Negative); Urobilinogen,Urine < 2.0 mg/dL (<2.0); WBC,Urine < 1.0 /HPF (0.0-6.0)
[2017-06-05] MEDS ORDERED: ZOFRAN ODT PO ONE (09:44)
[2017-06-05 09:46] LABS: Bilirubin,Direct < 0.2 mg/dL (0-0.2)
[2017-06-05] MEDS ORDERED: ZOFRAN ODT ONE (09:49)
== END 2017-06-05 10:22 | disposition home or self-care (01) ==
LOC: ED 02:48
DX: K29.70 Gastritis, unspecified, without bleeding (principal); R59.1 Generalized enlarged lymph nodes; R19.00 Intra-abdominal and pelvic swelling, mass and lump, unspecified site; Z88.0 Allergy status to penicillin; Z87.891 Personal history of nicotine dependence
CPT/HCPCS: 36415; 80048; 80074; 81001; 82150; 83690; 85025; 85045; 96372; 99283; J2270; Q0162